=== PATIENT | male | born 1980 | race Caucasian/White ===

== ENCOUNTER 2017-05-13 11:30 | Emergency (ER) | payer OTHER ==
[2017-05-13 11:54] VITALS: TEMP 97.6
[2017-05-13] MEDS ORDERED: CYCLOBENZAPRINE 10 MG TAB PO ONE (12:04)
[2017-05-13] MEDS ORDERED: KETOROLAC TROMETHAMINE 30 MG/ML SOL IM ONE (12:04)
[2017-05-13] MEDS ORDERED: MORPHINE SULFATE 10 MG/ML SOL IM ONE (12:04)
[2017-05-13] MEDS ORDERED: KETOROLAC TROMETHAMINE 30 MG/ML SOL IV ONE (12:10)
[2017-05-13] MEDS ORDERED: HYDROMORPHONE HCL 2 MG/ML SOL IV ONE (12:10)
[2017-05-13] MEDS ORDERED: CYCLOBENZAPRINE 10 MG TAB ONE (12:11)
[2017-05-13] MEDS ORDERED: KETOROLAC TROMETHAMINE 30 MG/ML SOL ONE (12:11)
[2017-05-13] MEDS ORDERED: HYDROMORPHONE 1 MG/ML SYRINGE ONE (12:11)
[2017-05-13] MEDS ORDERED: SODIUM CHLORIDE 0.9% FLUSH 10 ML SOL IV PRN (12:28)
[2017-05-13 13:08] VITALS: RESP 20; O2SAT 98
[2017-05-13 14:27] VITALS: BP 124/75; PULSE 78
== END 2017-05-13 15:52 | disposition home or self-care (01) | DRG 552 ==
LOC: ED 11:30
DX: M54.5 Low back pain (principal)
CPT/HCPCS: 72128; 72131; 99285; J1885; J1170

== ENCOUNTER 2018-09-17 23:39 | Emergency (ER) | payer OTHER ==
[2018-09-18 00:15] VITALS: RESP 18; TEMP 98.2
[2018-09-18 01:10] LABS: CALCIUM 8.7 mg/dl (8.5-10.1); CARBON DIOXIDE 26.3 mEq/L (21-32); CREATININE 1.01 mg/dl (0.80-1.30); THYROID STIMULATING HORMONE 4.197 uIU/ml (0.358-3.740)
[2018-09-18 01:11] VITALS: PULSE 68
[2018-09-18 01:40] VITALS: BP 122/68; O2SAT 97
== END 2018-09-18 01:30 | disposition home or self-care (01) | DRG 310 ==
LOC: ED 23:39
DX: R00.2 Palpitations (principal); I10 Essential (primary) hypertension
CPT/HCPCS: 36415; 80048; 84443; 85018; 93005; 99283; 99284